=== PATIENT | male | born 1995 | race Hispanic/Latino ===

== ENCOUNTER 2019-06-06 14:51 | Emergency (ER) | payer SELFPAY ==
[2019-06-06] MEDS ORDERED: NA CHLORIDE 0.9% 1,000 ML ONE (16:32)
[2019-06-06] MEDS ORDERED: KETOROLAC 30 MG/ML INJ ONE (16:32)
[2019-06-06] MEDS ORDERED: METOCLOPRAMIDE 10 MG/2mL INJ ONE (16:32)
[2019-06-06] MEDS ORDERED: DIPHENHYDRAMINE 50 MG/ML VIAL ONE (16:32)
[2019-06-06 16:47] LABS: Absolute Lymphocytes (CBC) 1.3 K/uL (0.7-4.9); Basophils % 0.3 % (0-1.3); Hematocrit 42.6 % (39.6-49.0); Lymphocytes % 10.9 % (15.3-44.8); MPV 8.7 fL (7.6-11.3)
--- NOTE | 2019-06-06 17:19 | RAD REPORT ---
EXAM DESCRIPTION: CT - Head Brain Wo Cont - 06/06/2019 5:08 pm CLINICAL HISTORY: headache Headache, drowsiness COMPARISON: No comparisons TECHNIQUE: All CT scans are performed using dose optimization technique as appropriate and may inclu de automated exposure control or mA/KV adjustment according to patient size. FINDINGS: No intracranial hemorrhage, hydrocephalus or extra-axial fluid collection.No areas of brai n edema or evidence of midline shift. Moderate paranasal sinus opacification involving the frontal, ethmoid and left maxillary antrum predo minately. The calvarium is intact. IMPRESSION: No acute intracranial abnormality. Moderate paranasal sinus disease.
[2019-06-06 17:28] LABS: BUN Blood Urea Nitrogen 13 mg/dL (7-18); Bicarbonate 27 mmol/L (21-32); Glucose Level 84 mg/dL (74-106); Potassium 4.1 mmol/L (3.5-5.1); Sodium Level 136 mmol/L (136-145)
--- NOTE | 2019-06-06 17:59 | EDPHYS ---
Physician Documentation [facility] Name: Usama Vasquez Age: 24 yrs Sex: Male : 1995 Arrival Date: 06/06/2019 Time: 14:51 Bed 16 Private MD: ED Physician Steve Maya HPI: 06/05 15:57 This 24 yrs old Male presents to ER via Ambulatory with complaints of la1 Headache, Worst Ever. 15:57 The patient complains of pain to the forehead. The patient describes the headache as la1 throbbing. Onset: The symptoms/episode began/occurred acutely, 3 day(s) ago. Associated signs and symptoms: Pertinent positives: nausea, Pertinent negatives: altered mental status, fever, malaise, neck stiffness, paresthesias, rash, vision changes, vision loss, vomiting, weakness, vertigo. Severity of symptoms: At its worst the pain was moderate, in the emergency department the pain. Headache History: Denies prior headaches. The symptoms are alleviated by cold, Darkened room, the symptoms are aggravated by noise. The patient has not experienced similar symptoms in the past. pt reports a month ago his cousin dies and he has been having a lot of stress, had a panic attack for the first time then this SEVILLA began. Historical: - Allergies: 15:10 No Known Allergies; aa5 - Home Meds: 15:11 None [Active]; aa5 - PMHx: 15:11 None; aa5 - PSHx: 15:10 None; aa5 - Immunization history:: Adult Immunizations up to date. - Social history:: Smoking status: Patient denies any tobacco usage or history of. ROS: 15:59 Constitutional: Negative for fever, chills, and weight loss, Eyes: Negative for injury, la1 pain, redness, and discharge, Neck: Negative for injury, pain, and swelling, Cardiovascular: Negative for chest pain, palpitations, and edema, Respiratory: Negative for shortness of breath, cough, wheezing, and pleuritic chest pain, Abdomen/GI: Negative for abdominal pain, nausea, vomiting, diarrhea, and constipation, Back: Negative for injury and pain, : Negative for injury, bleeding, discharge, and swelling, MS/Extremity: Negative for injury and deformity. 15:59 Neuro: Positive for headache, Negative for altered mental status, dizziness, hearing loss, loss of consciousness, numbness, seizure activity, speech changes, syncope, near syncope, tingling, tinnitus, tremor, visual changes, weakness, acute changes. Exam: 15:59 Constitutional: This is a well developed, well nourished patient who is awake, alert, la1 and in no acute distress. Head/Face: Normocephalic, atraumatic. Eyes: Pupils equal round and reactive to light, extra-ocular motions intact. Lids and lashes normal. Conjunctiva and sclera are non-icteric and not injected. Cornea within normal limits. Periorbital areas with no swelling, redness, or edema. ENT: Nares patent. No nasal discharge, no septal abnormalities noted. Mucous membranes moist. Neck: Trachea midline, Supple, full range of motion without nuchal rigidity, or vertebral point tenderness. No Meningismus. Chest/axilla: Normal chest wall appearance and motion. Nontender with no deformity. No lesions are appreciated. Cardiovascular: Regular rate and rhythm with a normal S1 and S2. Respiratory: Lungs have equal breath sounds bilaterally, clear to auscultation a Abdomen/GI: Soft, non-tender, with normal bowel sounds. No distension or tympany. No guarding or rebound. No evidence of tenderness throughout. Back: No spinal tenderness. No costovertebral tenderness. Full range of motion. Skin: Warm, dry with normal turgor. Normal color with no rashes, no lesions, and no evidence of cellulitis. MS/ Extremity: Pulses equal, no cyanosis. Neurovascular intact. Full, normal range of motion. 15:59 Neck: External neck: is normal, Trachea: is midline with no obvious abnormalities, ROM/movement: is normal, Meningeal signs: Kernig's sign is negative, Brudzinski's sign is negative, nuchal rigidity, is not appreciated, Lymph nodes: no appreciated lymphadenopathy. 15:59 Neuro: Orientation: is normal, to person, place, time \T\ situation. Memory: is normal, Cranial nerves: grossly normal, CN II- XII are normal as tested, Cerebellar function: normal finger to nose testing, heel to mary testing is normal, Motor: is normal, Sensation: is normal, Gait: not applicable Vital Signs: 15:08 BP 120 / 81; Pulse 99; Resp 18 S; Temp 98.1(TE); Pulse Ox 99% on R/A; Weight 81.65 kg aa5 (R); Height 5 ft. 4 in. (162.56 cm) (R); Pain 10/10; 17:00 BP 96 / 60; Pulse 91; Resp 17; Pulse Ox 99% ; bp 17:30 BP 104 / 55; Pulse 82; Resp 16; Pulse Ox 100% ; bp 18:15 BP 99 / 49; Pulse 82; Resp 17; Temp 98; Pulse Ox 99% ; bp 15:08 Body Mass Index 30.90 (81.65 kg, 162.56 cm) aa5 MDM: 15:36 Patient medically screened. la1 17:54 Data reviewed: vital signs, nurses notes, lab test result(s), radiologic studies, and la1 as a result, I will discharge patient. Data interpreted: Pulse oximetry: on room air is 100 %. Interpretation: normal. Counseling: I had a detailed discussion with the patient and/or guardian regarding: the historical points, exam findings, and any diagnostic results supporting the discharge/admit diagnosis, lab results, radiology results, the need for outpatient follow up, a family practitioner, to return to the emergency department if symptoms worsen or persist or if there are any questions or concerns that arise at home. Special discussion: Based on the history and exam findings, there is no indication for further emergent testing or inpatient evaluation. I discussed with the patient/guardian the need to see the primary care provider for further evaluation of the symptoms. ED course: Pt says headache is completely relieved, CT head is negative for acute findings, no menigeal signs, WBC is not significantly elevated. Strict return precautions given. will treat sinusitis identified on CT. 06/05 16:26 Order name: Basic Metabolic Panel; Complete Time: 17:38 EDMS 06/05 16:26 Order name: CBC with Automated Diff; Complete Time: 17:38 EDMS 06/05 16:26 Order name: Influenza Screen (A ; Complete Time: 17:38 EDMS 06/05 15:45 Order name: IV Saline Lock; Complete Time: 16:25 la1 06/05 16:49 Order name: Head Brain Wo Cont; Complete Time: 17:38 EDMS 06/05 15:45 Order name: Labs collected and sent; Complete Time: 16:25 la1 Administered Medications: 16:10 Drug: NS 0.9% 1000 ml Route: IV; Rate: 1000 ml; Site: left antecubital; bp 18:14 Follow up: IV Status: Completed infusion; IV Intake: 1000ml bp 16:10 Drug: Reglan 10 mg Route: IVP; Site: left antecubital; bp 18:14 Follow up: Response: Marked relief of symptoms bp 16:10 Drug: TORadol - Ketorolac 15 mg Route: IVP; Site: left antecubital; bp 18:15 Follow up: Response: Pain is decreased bp 16:10 Drug: Benadryl 25 mg Route: IVP; Site: left antecubital; bp 18:14 Follow up: Response: Marked relief of symptoms bp Disposition: 18:53 Co-signature as Attending Physician, Steve Maya MD. rn Disposition: 06/06/19 17:58 Discharged to Home. Impression: Acute sinusitis, Headache. - Condition is Stable. - Discharge Instructions: General Headache Without Cause, Sinusitis, Adult, Sinusitis, Adult, [id number]. - Prescriptions for Augmentin 875- 125 mg Oral Tablet - take 1 tablet by ORAL route every 12 hours for 10 days; 20 tablet. - Medication Reconciliation Form, Thank You Letter, Antibiotic Education form. - Follow up: Private Physician; When: 2 - 3 days; Reason: Recheck today's complaints, Re-evaluation by your physician. - Problem is new. - Symptoms have improved. Signatures: Dispatcher [employer] EDSteve Torre MD MD rn Calderon, Audri, RN RN aa5 Charlie Cardoza, BODY MAN-C BODY MAN-Cla1 Jose Gómez, RN RN bp Corrections: (The following items were deleted from the chart) 16:49 16:45 CT-HEAD/BRAIN W/O CONTRAST ordered. EDSD EDMS 17:34 17:22 Head Brain Wo Cont+CT.RAD.BRZ ordered. EDSD EDMS 18:24 17:58 06/06/2019 17:58 Discharged to Home. Impression: Acute sinusitis; Headache. bp Condition is Stable. Forms are Medication Reconciliation Form, Thank You Letter, Antibiotic Education, Prescription Opioid Use. Follow up: Private Physician; When: 2 - 3 days; Reason: Recheck today's complaints, Re-evaluation by your physician. Problem is new. Symptoms have improved. la1
--- NOTE | 2019-06-06 17:59 | ER ---
Nurse's Notes [facility] Name: Usama Vasquez Age: 24 yrs Sex: Male : 1995 Arrival Date: 06/06/2019 Time: 14:51 Bed 16 Private MD: Diagnosis: Acute sinusitis;Headache Presentation: 06/05 15:08 Chief complaint: Patient states: frontal headache that began . Denies aa5 vomiting/nausea. Denies dizziness, denies blurred vision. Denies injury. Coronavirus screen: The patient has NOT traveled to a country currently being monitored by the [facility] within the last 14 days. Ebola Screen: Patient negative for fever greater than or equal to 101.5 degrees Fahrenheit, and additional compatible Ebola Virus Disease symptoms. Initial Sepsis Screen: Does the patient meet any 2 criteria? No. Patient's initial sepsis screen is negative. Does the patient have a suspected source of infection? No. Patient's initial sepsis screen is negative. Risk Assessment: Do you want to hurt yourself or someone else? Patient reports no desire to harm self or others. 15:08 Acuity: YADY 3 aa5 15:08 Method Of Arrival: Ambulatory aa5 Triage Assessment: 15:15 Headache History: The patient has had previous headaches and this one is more severe bp than previous episodes. General: Appears in no apparent distress. comfortable, Behavior is cooperative, appropriate for age, anxious. Pain: Complains of pain in head Pain currently is 8 out of 10 on a pain scale. Pain began 1 day ago. Also complains of no other associated symptoms. EENT: No deficits noted. Neuro: Level of Consciousness is awake, alert, obeys commands, Oriented to person, place, time, situation, Appropriate for age. Cardiovascular: No deficits noted. Respiratory: No deficits noted. GI: No signs and/or symptoms were reported involving the gastrointestinal system. : No signs and/or symptoms were reported regarding the genitourinary system. Derm: No deficits noted. Musculoskeletal: No deficits noted. Historical: - Allergies: 15:10 No Known Allergies; aa5 - Home Meds: 15:11 None [Active]; aa5 - PMHx: 15:11 None; aa5 - PSHx: 15:10 None; aa5 - Immunization history:: Adult Immunizations up to date. - Social history:: Smoking status: Patient denies any tobacco usage or history of. Screenin:30 Abuse screen: Denies threats or abuse. Denies injuries from another. Nutritional bp screening: No deficits noted. Tuberculosis screening: No symptoms or risk factors identified. Fall Risk None identified. Assessment: 16:15 General: SEE TRIAGE NOTE. bp 17:15 Reassessment: PT RETURNED FROM CT. ALL CURRENT ORDERS COMPLETED. MARKED RELIEF OF S/S. bp 18:21 Reassessment: PT D/C HOME AMBULATORY WITH FAMILY, DX WITH SINUS INFECTION. bp Vital Signs: 15:08 BP 120 / 81; Pulse 99; Resp 18 S; Temp 98.1(TE); Pulse Ox 99% on R/A; Weight 81.65 kg aa5 (R); Height 5 ft. 4 in. (162.56 cm) (R); Pain 10/10; 17:00 BP 96 / 60; Pulse 91; Resp 17; Pulse Ox 99% ; bp 17:30 BP 104 / 55; Pulse 82; Resp 16; Pulse Ox 100% ; bp 18:15 BP 99 / 49; Pulse 82; Resp 17; Temp 98; Pulse Ox 99% ; bp 15:08 Body Mass Index 30.90 (81.65 kg, 162.56 cm) aa5 ED Course: 14:51 Patient arrived in ED. ag5 15:08 Arm band placed on. aa5 15:10 Triage completed. aa5 15:24 Charlie [facility]C [facility]. la1 15:24 Steve Maya MD is Attending Physician. la1 15:30 Patient has correct armband on for positive identification. Bed in low position. Call bp light in reach. Side rails up X2. Adult w/ patient. 16:00 Jose Gómez, ANU is Primary Nurse. bp 16:05 Inserted saline lock: 20 gauge in left antecubital area, using aseptic technique. Blood bp collected. 17:10 Head Brain Wo Cont In Process Unspecified. EDMS 18:21 No provider procedures requiring assistance completed. IV discontinued, intact, bp bleeding controlled, No redness/swelling at site. Pressure dressing applied. Administered Medications: 16:10 Drug: NS 0.9% 1000 ml Route: IV; Rate: 1000 ml; Site: left antecubital; bp 18:14 Follow up: IV Status: Completed infusion; IV Intake: 1000ml bp 16:10 Drug: Reglan 10 mg Route: IVP; Site: left antecubital; bp 18:14 Follow up: Response: Marked relief of symptoms bp 16:10 Drug: TORadol - Ketorolac 15 mg Route: IVP; Site: left antecubital; bp 18:15 Follow up: Response: Pain is decreased bp 16:10 Drug: Benadryl 25 mg Route: IVP; Site: left antecubital; bp 18:14 Follow up: Response: Marked relief of symptoms bp Intake: 18:14 IV: 1000ml; Total: 1000ml. bp Outcome: 17:58 Discharge ordered by . la1 18:24 Discharged to home ambulatory, with family. bp 18:24 Condition: stable 18:24 Discharge instructions given to patient, Instructed on discharge instructions, follow up and referral plans. medication usage, Demonstrated understanding of instructions, follow-up care, medications, Prescriptions given X 1. 18:24 Patient left the ED. bp Signatures: Dispatcher [employer] EDCO Chloé Sanchez RN RN aa5 Charlie Cardoza, FISH HATCHERY MAN-C FISH HATCHERY MAN-Cla1 Jose Gómez RN RN bp Carmen Michel ag5 Corrections: (The following items were deleted from the chart) 18:24 16:00 Discharged to home ambulatory, with family, bp bp 18:24 16:00 Condition: stable bp bp 18:24 16:00 Discharge instructions given to patient, Instructed on discharge instructions, bp follow up and referral plans. medication usage, Demonstrated understanding of instructions, follow-up care, medications, Prescriptions given X 1, bp
[2019-06-06 19:03] VITALS: BP 99/49; TEMP 98; O2SAT 99
== END 2019-06-06 18:24 | disposition home or self-care (01) ==
LOC: ER 14:51
DX: J01.90 Acute sinusitis, unspecified (principal)
CPT/HCPCS: 36415; 70450; 80048; 85025; 87804; 96361; 96374; 96375; 99284; J1200; J2765; J7030